=== PATIENT | female | born 1970 | race Caucasian/White ===

== ENCOUNTER 2025-03-23 14:53 | Outpatient (AMB) | payer OTHER, SELFPAY ==
--- NOTE | 2025-03-23 15:01 | A.OFFVIS_ITS ---
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 Two of her sisters in their 70s also had dementia. Occasionally she forgets coworkers names but she has been working from home and does not see them all the time. The name comes back after moment of thinking. On 2 occasions she has felt momentarily disoriented as to where she was going but this has not happened again. Recently she has been worked up by Rheumatology for an autoimmune disorder and started on hydrochloroquine. She apparently had a positive GALA but all other immune test and inflammatory markers were negative. She does have some joint pains and fibromyalgia for which she takes gabapentin at bedtime. [facility] Medical History (Updated 03/23/25 @ 15:19 by Checo Mae MD) Hypothyroid Memory loss Headache Review of Systems ENT Reports dysphagia, Reports hearing loss, Reports hoarseness and Reports neck pain GI Reports dysphagia Musc Reports back pain, Reports arthralgias, Reports limited range of motion and Reports neck pain Neuro Reports memory loss Psych Reports memory loss Physical Exam Neuro Other: Mini Mental Status Exam Level of Consciousness:?Alert.? Orientation:?Knows correct year, month, date, day and season.?Knows correct city, county and state. Knows correct location and floor.? Registration:?Able to register 3 objects.? Attention:?Serial 7's performed?? accurately.? Recall:?Able to recall 3 out of 3 objects.? Language:?Normal spontaneous speech, fluency, repetition, naming, comprehension, reading, and writing.? ?? Total Score:?30/30.? Neurological Abnormal neurological findings:??None. ? Mental Status:?Alert and oriented X 3.?Normal attention, orientation, memory, and affect.? Cranial Nerves:?Pupils are equal, round and reactive to light. Fundoscopy shows normal disc bilaterally. External ocular muscles are intact. Visual pradhan are full, no ptosis. Face is symmetrical, no facial weakness or droop. Facial sensations are normal.? Tongue protrudes in midline. Palate elevates symmetrically. Shoulder?? shrugging is normal.? Motor Examination:?Normal muscle tone, bulk and strength.?No atrophy or fasciculations.?No drift of the extended upper extremities.?Deep tendon reflexes are 2+.?Plantars?? are flexor.? ?Motor Strength:? Proximal Muscles (out of 5):?5 Distal Muscles (out of 5):?5 Neck Flexors (out of 5):?5 Neck Extensors (out of 5):?5 Deltoid (out of 5):?5 Biceps (out of 5):?5 Triceps (out of 5):?5 Serratus Anterior (out of 5):?5 Wrist Extensors (out of 5):?5 APB (out of 5):?5 Finger Spread (out of 5):?5 Ileopsoas (out of 5):?5 Quadriceps (out of 5):?5 Hamstrings (out of 5):?5 Tibialis Anterior (out of 5):?5 Peronei (out of 5):?5 EDB (out of 5):?5 Gastrocnemius (out of 5):?5 Straight Leg Raising:?90 degrees.? Sensory Exam:?Normal light touch,?? temperature, pinprick, vibration and joint- position sensations.?Rhomberg?? sign is absent.? Coordination:?No ataxia,?no titubation,?ztxbdo-gr-kyak, oigp-iamy-ezhp test, and rapid alternating?? movements were normal.? Gait Exam:?Normal. ? Cerebellar Signs:?Bqbcyj-bm-ieqa and?? ckbc-jw-skyu is normal.?No dysdiadochokinesia.? Extrapyramidal System:?No tremor or?rigidity, normal facial expressions.?No bra dykinesia. No bradyphrenia. Normal arm swing and posture. No propulsion or retropulsion.? Speech:?Normal,?no dysphasia or dysarthria.? General Examination GENERAL APPEARANCE:??Morbid obesity, in no acute distress?.? ?? HEAD:??normocephalic,?atraumatic.? ?? EYES:??sclera non-icteric,?conjunctiva clear.? ?? EARS:??auditory canal clear,?tympanic membrane intact, clear.? ?? NOSE:??no lesions.? ?? ORAL CAVITY:??gums normal,?mucosa moist,?no lesions.? ?? THROAT:??clear.? ?? NECK/THYROID:??no cervical lymphadenopathy,?thyroid normal,?neck supple, full range of motion,?no carotid bruit.? ?? SKIN:??no rashes,?no significant?? birthmarks.? ?? HEART:??S1, S2 normal,?no murmurs? ?? LUNGS:??clear anteriorly and ?posteriorly? ?? CHEST:??no gross rib deformity,?clear to ?auscultation.? ?? BACK:??normal exam of spine.? ?? MUSCULOSKELETAL:??normal.? ?? EXTREMITIES:??no edema.? ?? PERIPHERAL PULSES:??normal.? ?? PSYCH:??alert, oriented,?cognitive function intact,?cooperative with exam?,?alert,?? oriented,?cognitive ?function intact,?cooperative with exam.? Assessment & Plan Assessment & Plan (1) MCI (mild cognitive impairment): Code(s): G31.84 - Mild cognitive impairment of uncertain or unknown etiology Category: Medical (2) Migraine: Comment: in remission Code(s): G43.909 - Migraine, unspecified, not intractable, without status migrainosus Category: Medical Plan Check labs for A Beta / p-Tau Orders: Orders ABeta 42/40 p-tau 217 Eval Today G31.84 - Mild cognitive impairment of uncertain or unknown etiology Coding Level of Care Code New Pt Level 5 (62158) Diagnoses MCI (mild cognitive impairment) G31.84 Migraine G43.909
--- OUTSIDE RECORDS SUMMARY | 2025-03-23 23:25 | XMS_ITS | Encounter Summary ---
Author Organization [facility] Address [address] [place] [address] Care Team Providers Care Tube Washer Name Role Phone Aaron Hermosillo MD Primary Care Provider [phone] Encounter Details Date Type Department Care Team ([facility] Contact Info) Description 02/11/2025 Results Follow-Up Internal Medicine - [address] [phone] Robert Ho NP [address] [place] [id number] Social History Tobacco Use Types Packs/Day Years Used Date Smoking Tobacco: Never Smokeless Tobacco: Never Alcohol Use Standard Drinks/Week Comments Yes 0 (1 standard drink = 0.6 oz pur e alcohol) Housing Instability Answer Date Recorde d Are you worried that in the next 2 months you may not have stable housing? No 05/24/2024 Food Access & Nutrition Answer Date Rec orded Do you have access to a vari ety of food including fruits and vegetables? Yes 05/24/2024 Access to Healthcare Answer Date Record ed Within the last 3 months, ho w many times did you visit the emergency department for your medical care? 0 05/24/2024 Health Literacy Answer Date Recorded How often do you need to hav e someone help you when you read instructions, pamphlets, or other written material from your doctor or pharmacy? Never 05/24/2024 Caregiver: How often do you need to have someone help you when you read instructions, pamphlets, or other written material from your doctor or pharmacy? Not on file 05/24/2024 Financial Risk Answer Date Recorded How hard is it for you to pa y for the very basics like food, housing, medical care, and air conditioning / heating? Somewhat hard 05/24/2024 Transportation Answer Date Recorded Has the lack of transportati on kept you from meetings, work, or from getting things needed for daily living? No Has the lack of transportati on kept you from medical appointments or from getting medications? No 05/24/2024 Social Isolation Answer Date Recorded How often do you feel lonely or isolated from ose around you? Often 05/24/2024 Food Risk Answer Date Recorded Within the past 12 months we worried whether our food would run out before we got money to buy more. Never true 05/24/2024 Within the past 12 months th e food we bought just didn't last and we didn't have money to get more. Never true 05/24/2024 Dependent Care Answer Date Recorded Do you need help finding or paying for care for your loved ones. For example, child development assistant or elderly care for an older adult? No 05/24/2024 Education Answer Date Recorded Do you think completing more education or training, like finishing a GED, going to college, or learning a trade, would be helpful for you? Unable to respond 05/24/2024 Employment and Income Answer Date Recor ded During the last four weeks, have you been actively looking for work? No 05/24/2024 Living Situation Answer Date Recorded What is your living situation? Unrecognized valu e 05/24/2024 Comments No Sex and Gender Information Value Date Recorded Sex Assigned at Female 06/23/2024 6:07 AM EDT Legal Sex Female 5:33 AM EST Gender Identity Female 06/23/2024 6:07 AM EDT Sexual Orientation Straight 10/11/2024 12 :16 PM EDT documented as of this encounter Plan of Treatment Upcoming Encounters Date Type Department Care Team (Late st Contact Info) Description 03/30/2025 10:00 AM EST Ancillary Procedure [facility] [address] [address] 03/31/2025 7:30 AM EST Ancillary Procedure [facility] [address] [address] 05/25/2025 4:00 PM EST Office Visit Internal Medicine - [address] [phone] Diandra Watkins, JEAN MARIE [address] [place] [phone] 06/07/2025 7:40 AM EST Office Visit [facility] - [address] [facility] [address] [place] [address] Veronica Morrison NP [address] [place] [address] Dr Hansen [address] [place] [phone] documented as of this encounter Visit Diagnoses Not on filedocumented in this encounter Additional Health Concerns Assessment Noted Time PHQ-9 Depression Total Score: 4 06/24/19 25 6:24 AM EDT documented as of this encounter Care Teams Tube Washer Relationship Specialty Start Date End Date Aaron Hermosillo MD [address] [place] [id number] PCP - General Internal Medicine 12/14/24 documented as of this encounter
--- OUTSIDE RECORDS SUMMARY | 2025-03-23 23:26 | XMS_ITS ---
Author Name [facility] Organization Unknown History of Medication Use Medication Directions Dispensed Refills Start Date End Date Stat us diazePAM (Valium) 2 mg tablet Take one tablet 30 minutes prior to MRI. May repeat once if needed for anxiety. 07/02/2024 active alendronate (FOSAMAX) 70 mg tablet Take 1 tablet (70 mg total) by mouth every 7 (seven) days. Take 1 tablet by mouth every 7 days. 05/24/2024 active cyclobenzaprine (FLEXERIL) 10 mg tablet Take 1 tablet (10 mg total) by mouth at bedtime as needed for muscle spasms. 05/24/2024 active gabapentin (NEURONTIN) 300 mg capsule Take 1 capsule (300 mg total) by mouth at bedtime. 05/24/2024 active levothyroxine (SYNTHROID, LEVOTHROID) 50 mcg tablet Take 1 tablet (50 mcg total) by mouth 1 (one) time each day. 05/24/2024 active fluticasone propionate (FLONASE) 50 mcg/actuation nasal spray Administer 2 sprays into affected nostril(s) 1 (one) time each day. 11/12/2022 active albuterol HFA (PROAIR HFA ; PROVENTIL HFA ; VENTOLIN HFA) 90 mcg/actuation inhaler Inhale 2 puffs by mouth every 4 (four) hours if needed for wheezing or shortness of breath (or cough). 12/07/2020 active acetaminophen (TYLENOL) 500 mg tablet Take 1 tablet (500 mg total) by mouth every 8 (eight) hours if needed (for pain). 07/03/2020 active diclofenac (VOLTAREN) 1 % topical gel Apply 1 Dose topically 2 (two) times a day. 04/28/2020 active calcium carbonate-vitamin D3 600 mg-20 mcg (800 unit) tablet,chewable Take 1 Tablet by mouth daily. active SUMAtriptan (IMITREX) 100 mg tablet Take 1 tablet (100 mg total) by mouth 1 (one) time each day if needed for migraine (may repeat dose once after 2 hours, if needed.). Do not exceed 2 doses in 24 hours. active Allergies Allergen Reaction Severity Comment Documented Date Source Statu s IODINATED CONTRAST MEDIA RASH 11/02/2021 [facility] active OXYCODONE HCL NAUSEA AND VOMITING 06/24/2007 [facility] active Problems Problem Status Onset Date Problem Type Date of Resoluti on Source Age-related osteoporosis without current pathological fracture active 2020-04-12 ProblemAct [facility] Postlaminectomy syndrome active 2020-05-25 ProblemAct [facility] Left arm weakness active 2016-08-08 ProblemAct [facility] Degeneration of lumbar or lumbosacral intervertebral disc active 2006-11-26 ProblemAct [facility] Migraine active 2013-07-09 ProblemAct [facility] Neck pain active 2013-07-09 ProblemAct [facility] Levoscoliosis active 2022-03-12 ProblemAct [facility] Allergic rhinitis active 2005-06-18 ProblemAct [facility] Elevated antinuclear antibody (GALA) level active 2020-04-19 ProblemAct [facility] Headache active 2010-05-24 ProblemAct [facility] Hyperlipidemia active 2005-07-04 ProblemAct [facility] Anetoderma active 2020-03-03 ProblemAct [facility] Hypothyroidism active 2005-04-08 ProblemAct [facility] Sacroiliitis, not elsewhere classified (CMS/HCC V24) active 2020-04-20 ProblemAct [facility] Immunizations Vaccine Date Source Lot Number Status Moderna SARS-CoV-2 COVID-19, mRNA, LNP-S, preservative free 05/25/2021 [facility] [id number] completed Moderna SARS-CoV-2 COVID-19, mRNA, LNP-S, preservative free 04/23/2021 [facility] [id number] completed Td Tetanus diptheria (Tdvax) 7yo and older 07/27/2018 [facility] [id number] completed Influenza trivalent, with pr eservative (Fluzone; Afluria) 6mo and older 01/13/2012 [facility] [id number] completed Tdap Tetanus diptheria acell ular pertussis (Boostrix; Adacel) 7yo and older 01/28/2008 [facility] [id number] completed Influenza trivalent, with pr eservative (Fluzone; Afluria) 6mo and older 01/27/2008 [facility] completed PPD Test 07/18/2000 [facility] completed PPD Test 07/16/2000 [facility] completed Care Team Organization Name Specialty Phone Email Start Date End Da te [facility], PROVIDER Primary Care 12/19/202211/12 [facility] Zoila De La Cruz Primary Care 08/19/202211/12
--- OUTSIDE RECORDS SUMMARY | 2025-03-23 23:26 | XMS_ITS | Clinical Summary ---
Author Organization [facility] Address [address] [place] [address] Care Team Providers Care Shank Taper Name Role Phone Aaron Hermosillo Primary Care Provider [phone] Allergies Active Allergy Reactions Criticality Noted Date Comments Contrast Dye Urticarial Rash Medium 08/26/2022 Oxycodone Urticarial Rash Medium 08/26/2022 Social History Tobacco Use Types Packs/Day Years Used Date Smoking Tobacco: Never Assessed Intimate Partner Violence Answer Date R ecorded Fear of Current or Ex-Partner Not on file Emotionally Abused Not on file 12/05/2022 Physically Abused Not on file 12/05/2022 Sexually Abused Not on file 12/05/2022 Feel Safe at Home Not on file 12/05/2022 Comments Unknown Sex and Gender Information Value Date Recorded Sex Assigned at Not on file Legal Sex Female 10:15 AM EDT Gender Identity Not on file Sexual Orientation Not on file Plan of Treatment Health Maintenance Due Date Last Done Comments Hepatitis C Screening 1969 Pap Smear 1985 DTaP/Tdap/Td (1 - Tdap) 11/16/1987 Hep B (1 of 3 - 19+ 3-dose series) 1988 Mammogram/Breast Imaging 2009 Colon Cancer Screening 2014 Pneumococcal 50+ years (1 of 1 - PCV) 11/16/2019 Zoster (Shingrix) (1 of 2) 11/16/2019 COVID-19 Vaccine (2024-2 6 season) 2024 Influenza (#1) 2024 RSV (1 - 1-dose 75+ series) 2044 HPV Vaccine (No Doses Required) Completed Hep A Aged Out No longer eligi ble based on patient's age to complete this topic Hib Aged Out No longer eligi ble based on patient's age to complete this topic Meningococcal ACWY Aged Out No longer eligible based on patient's age to complete this topic Care Teams Shank Taper Relationship Specialty Start Date End Date Aaron Hermosillo [address] [id number] PCP - General Internal Medicine 07/22/22
--- OUTSIDE RECORDS SUMMARY | 2025-03-23 23:26 | XMS_ITS | Data Portability ---
Author Organization [place] - [facility], Allergy Address [address] [address] Care Team Providers Care Executive Producer Name Role Phone CLAYTON NAVA Referring Provider RABIA MENDIOLA Primary Care Provider Assessment Encounter Date Assessment Date Assessment LastModified by Organization Details LastModified Time 09/29/2024 09/29/2024 Feels difficulty swallowing all the time. Saliva, food, liquid intermittently are difficulty to go down. Has chronic intermittent hoarseness. Recently had an MRI scan for memory issues that showed no sinus or ear disease. Followed by neurology. Examination shows mild breathiness to her voice. There is no evidence of any oropharyngeal lesions. Transnasal fiberoptic examination shows mild anterior glottic bowing but good mobility and no pooling of secretions. Suggest modified barium swallow with speech pathology to assess for any swallowing issues. She does have follow-up with neurology for her memory issues and we will ask them to assess for any neuromuscular conditions [email or web address] Not available 09/29/2024 15:50:18 Plan of Treatment Reminders Order Date Submit Date Provider Last Modified By Organization Details Last Modified Time Details Appointments None recorded. Lab None recorded. Referral None recorded. Procedures None recorded. Surgeries None recorded. Imaging [place], modified barium swallow study 2024 025 [id number] [facility] Diagnosit Imaging Dept, [address] [place] [address], [address], 12:15:04 Medication Orders None recorded. Patient TargetsNo targets recorded. Patient InstructionsNo instructions recorded. Reason for Referral None Reported. Results Created Date Observation Date Name Description Value Unit Range Abnormal Flag Note LastModifiedBy Organization Detail LastModifiedTime 10/01/19 MRI, brain , w/o contr ast No observ ation record ed. [email or web address] Not Available 12:15:59 10/01/19 25 MRI, brain , w/o contr ast No observ ation record ed. [email or web address] Not Available 12:16:05 10/01/19 25 MRI, brain , w/o contr ast No observ ation record ed. [email or web address] Not Available 12:15:50 01/14/20 25 01/13/2025 proce dures No observ ation record ed. [facility] Dept [address] [facility], [place], [address], 01/13/2025 17:57:28 01/14/2001/13/2025 xr bunny garg with video and speec h See Note [facility] , a member of [facility] Erik antoine Name: ABY FOWLER Date of : 1970 Reason for Exam: dyspha janae Exam Date: 2024 [id number] EST Report Status : Final Orderi ng Provid er: ARON DOWLING BSTEIN PCP: RABIA SPENCE I [facility] HISTOR Y: dyspha janae. STUDY: Modifi ed barium swallo w study COMPAR CAREY: No prior modifi ed barium swallo w. HISTOR Y: Erik antoine is a 54-yea r-old female with histor y of dyspha janae. TECHNI QUE: Multip le sequen tial fluoro scopic images of the latera l neck were obtain ed for a swallo wing functi on study. Barium enhanc ed consis tencie s of puddin g, honey, nectar , thin liquid , semi-s olid, and a 13 mm barium tablet were utiliz ed for evalua tion. Examin ation was perfor med with the speech therap ist americo antoine. FINDIN GS: There was no eviden ce for penetr ation or aspira tion of the variou s consis tencie s. 13mm barium tablet was swallo wed withou t diffic ulty with prompt passag e of pill past the hypoph arynx. DAP: 0.07 Gycm^2 IMPRES DEYSI: Normal swallo wing functi on. Please refer to the nataliia walters speech pathol ogist report for furthe r detail s as clinic fred walters. CT Telera diolog y ------ -- FINAL REPORT ------ -- Dictat ed By: Laurie Spann Dictat ed Date: 2024 12:03 ET Assign ed Physic coco: James Powell Review ed and Electr onical ly Signed By: James Powell Signed Date: 2024 12:07 ET Workst ation ID: [id number] Transc ribed By: Self Edit Transc ribed Date: 2024 12:04 ET Reside nt/PA/ BUS OPERATOR: Laurie Spann [facility] [address] [place], [address], 01/13/2025 17:57:28 Result Notes None recorded. 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; Note: Date Diagnosed : 05/14/2014 10:17 AM (388.72) Not Available [facility] 4 03:16:40 Chronic laryngiti s 29856884 Active 2015 Chronic laryngiti s; Note: Date Diagnosed : 07/25/2015 4:04 PM (J37.0) Not Available [facility] 4 03:16:41 Pain of right temporoma ndibular joint 41591002191 370937 Active 2016 Arthralgi a of right temporoma ndibular joint; Note: Date Diagnosed : 05/06/2016 1:43 PM (M26.621) Not Available [facility] 4 03:16:41 Otalgia of right ear 5248926421 Active 2016 Otalgia, right ear; Note: Date Diagnosed : 05/06/2016 1:24 PM (H92.01) Not Available [facility] 4 03:16:40 Allergic rhinitis 76254280 Active 2016 Allergic rhinitis: Due to other allergen; Note: Date Diagnosed : 06/10/2016 1:31 PM (477.8) Not Available [facility] 4 03:16:40 Chronic hoarsenes s 63154341336 05 Active 2024 ARON FERNANDEZ MD [address] [facility], [facility] [place], [address] , [facility] - [facility] 5 15:46:37 Pharyngea l dysphagia 04214211891 105 Active 2024 ARON FERNANDEZ MD [address], [facility] [place], [address] , [facility] 15:46:48 Problem Notes None recorded. Procedures Surgical History Date Name Laterality Status Provider Name and Address Organization Details Recorded Time 09/30/19 25 Fiberoptic Laryngoscopy (Comprehensive) completed ARON COOK MD [address],[place] [address], [place], [address], [facility] - [facility] 09/29/2024 15:49:16 laminectomy completed Radha Santana [facility] 09/29/2024 15:26:26 Imaging Results None recorded. Procedure Notes None recorded. Medical Equipment None Reported. Allergies Allergen ID Allergen Name Allergen Category Reaction Reaction Severity Criticality Documentation Date Start Date Code Code System Note Provider Name and Address Organization Details Recorded Time 294317 Iodinated contrast media (substanc e) medicatio n Not available Not available Not available 09/29/2024 64033 2004 SNOMED Radha christensen [place] [facility] 5 15:24:21 446628 oxycodone medicatio n Not available Not available Not available 09/29/2024 7804 RxNorm Radha christensen [place] [facility] 15:24:28 Medications Name Sig Start Date Stop Date Status Note LastModified by Organization Details LastModified Time cyclobenz aprine 10 mg tablet PLEASE SEE ATTACHED FOR DETAILED DIRECTIO NS 2024 active Not Available Not Available Not Avai lable sumatript an 100 mg tablet 2016 active Medicati on ID: [id number] D uration Value: 22 Brand Name: jarad zayas succinat e Send Method: E-Prescr ibed Sub s Allowed: subs OK Medic ationGen ericName : sumatrip zayas succinat e Not Available Not Available Not Available alendrona te 70 mg tablet TAKE 1 TABLET BY MOUTH EVERY 7 DAYS active Not Available Not Available No t Available Zyrtec 10 mg tablet 06/10 completed Medicati on ID: [id number] P rescribe d By Name: YOUNG Ryder nd Name: Zyrtec S end Method: E-Prescr ibed Sub s Allowed: subs OK Speci al Instruct ion: Take 1 tablet by mouth every day Medi cationGe nericNam e: Zyrtec Not Available Not Available Not Available aspirin 81 mg tablet,de layed release 09/29 completed Medicati on ID: [id number] B rand Name: aspirin Send Method: E-Prescr ibed Sub s Allowed: subs OK Medic ationGen ericName : aspirin Not Available Not Available Not Available oxycodone -acetamin ophen 5 mg-325 mg tablet 06/10 completed Medicati on ID: [id number] Du ration Value: 2 Reason: () Brand Name: oxycodon e-acetam inophen Send Method: E-Prescr ibed Sub s Allowed: subs OK Medic ationGen ericName : oxycodon e-acetam inophen Not Available Not Available Not Available amoxicill in 875 mg tablet 06/10 completed Medicati on ID: [id number] Du ration Value: 10 Reason: () Brand Name: amoxicil sean Send Method: E-Prescr ibed Sub s Allowed: subs OK Medic ationGen ericName : amoxicil sean Not Available Not Available Not Available diazepam 2 mg tablet TAKE ONE TABLET 30 MINUTES PRIOR TO MRI. MAY REPEAT ONCE IF NEEDED FOR ANXIETY. 09/29 completed Not Available Not Available Not Available levothyro xine 50 mcg tablet TAKE 1 TABLET BY MOUTH EVERY DAY active Not Available Not Available No t Available gabapenti n 300 mg capsule TAKE 1 CAPSULE BY MOUTH EVERYDAY AT BEDTIME active Not Available Not Available No t Available albuterol sulfate HFA 90 mcg/actua tion aerosol inhaler INHALE 2 PUFFS INTO THE LUNGS 4 TIMES DAILY NEEDED FOR COUGH, WHEEZING OR SHORTNES S OF BREATH. active Not Available Not Available No t Available fluticaso ne propionat e 50 mcg/actua tion nasal spray,suhail [place] 1 spray every day by intranas al route. active Not Available Not Available No t Available Levora-28 0.15 mg-0.03 mg tablet 06/10 completed Medicati on ID: [id number] Du ration Value: 84 Reason: () Brand Name: Levora-2 8 Send Method: E-Prescr ibed Sub s Allowed: subs OK Medic ationGen ericName : Levora-2 8 Not Available Not Available Not Available topiramat e 50 mg tablet 06/10 completed Medicati on ID: [id number] Du ration Value: 40 Reason: () Brand Name: topirama te Send Method: E-Prescr ibed Sub s Allowed: subs OK Medic ationGen ericName : topirama te Not Available Not Available Not Available EpiPen 2-Oscar 0.3 mg/0.3 mL injection , auto-inje ctor Inject 1 pen injector intramus cularly single dose as needed 09/29 completed Medicati on ID: [id number] D uration Value: 1 Prescri bed By Name: Brenda Rojo nd Name: EpiPen 2-Oscar Se nd Method: E-Prescr ibed Sub s Allowed: subs OK Medic ationGen ericName : EpiPen 2-Oscar Not Available Not Available Not Available Vitals Date Recorded Body height Body weight Provider Name and Address Organization Details Last Updated DateTime 09/29/2024 154.94 cm 48856.75 g Radha Santana [place] - [facility] 09/29/2024 15:23:58 Social History None recorded. Functional Status None recorded. Mental Status None recorded. Family History Nothing Reported. Medical History Condition Response Migraines Y Arthritis Y Thyroid Problems Y Gynecological HistoryNo gynecological history recorded. Obstetrics History GPAL:G 0 P 0 0 0 0 Past Encounters Encounter ID Performer Location Encounter Start Date Encounter Closed Date Diagnosis/Indication Diagnosis SNOMED-CT Code Diagnosis ICD10 Code Diagnosis IMO Codes Diagnosis Note [id number] ARON FERNANDEZ MD [facility] [address] [place] [address] 09/29/2024 14:58:28 09/29/2024 16:14:06 Chronic hoarseness 2941300969 105 R49.0 2465831 Pharyngeal dysphagia 377 5057752 9105 R13.13 Health Concerns Section Related Observation LastModified by Organization Detai ls LastModified Time None Recorded Concern Status LastModified by Organization Details LastModified Time None Recorded Advance Directives Directive None Recorded Payers Insurance Date Sequence Insurance Name Policy Number Policy Luis Covered Member ID Luis Member ID Guarantor Name 2024 1 [facility] [id number] [facility] [id number] [facility] 02/17/2025 1 [facility] [id number] Nickie Salharry [facility] [id number] [facility] Notes Date Note Type Note Provider Name and Address Organization Details Recorded Time 09/29/2024 text/html ROS as noted in the HPI Feels difficulty swallowing all the time. Saliva, food, liquid intermittently are difficulty to go down. Has chronic intermittent hoarseness. Recently had an MRI scan for memory issues that showed no sinus or ear disease. Followed by neurology ARON COOK MD [address] [place] [address], [address], [place] - [facility] 09/29/2024 17:03:53 OBGyn Episode No OBEpisode recorded.
--- OUTSIDE RECORDS SUMMARY | 2025-03-23 23:26 | XMS_ITS | Clinical Summary ---
Author Organization [address] [facility] Building Address [address] [place] [phone] Phone Care Team Providers Care Winery Worker Name Role Phone Aaron Hermosillo MD Primary Care Provider [phone] Allergies Active Allergy Reactions Criticality Noted Date Comments Iodinated Contrast Media Rash 11/02/2021 Oxycodone Hcl Nausea And Vomiting 06/24/2007 Medications albuterol HFA (PROAIR HFA ; PROVENTIL HFA ; VENTOLIN HFA) 90 mcg/actuation inhaler Inhale 2 puffs by mouth every 4 (four) hours if needed for wheezing or shortness of breath (or cough). 1 Active acetaminophen (TYLENOL) 500 mg tablet Take 1 tablet (500 mg total) by mouth every 8 (eight) hours if needed (for pain). 1 Active diclofenac (VOLTAREN) 1 % topical gel Apply 1 Dose topically 2 (two) times a day. 1 Active fluticasone propionate (FLONASE) 50 mcg/actuation nasal spray Administer 2 sprays into affected nostril(s) 1 (one) time each day. 3 Active SUMAtriptan (IMITREX) 100 mg tablet Take 1 tablet (100 mg total) by mouth 1 (one) time each day if needed for migraine (may repeat dose once after 2 hours, if needed.). Do not exceed 2 doses in 24 hours. Active calcium carbonate-vitamin D3 600 mg-20 mcg (800 unit) tablet,chewable Take 1 Tablet by mouth daily. Active diazePAM (Valium) 2 mg tablet Take one tablet 30 minutes prior to MRI. May repeat once if needed for anxiety. 2 tablet 5 Active hydroxychloroquin e (PLAQUENIL) 200 mg tablet Take 1 tablet (200 mg total) by mouth 1 (one) time each day. 5 Active alendronate (FOSAMAX) 70 mg tabletIndications :Age-related osteoporosis without current pathological fracture Take 1 tablet (70 mg total) by mouth every 7 (seven) days. Take 1 tablet by mouth every 7 days. 12 each 1 5 05/21/19 26 Active gabapentin (NEURONTIN) 300 mg capsuleIndication s:Chronic bilateral low back pain with bilateral sciatica Take 1 capsule (300 mg total) by mouth at bedtime. 30 each 2 5 Active cyclobenzaprine (FLEXERIL) 10 mg tabletIndications :Chronic bilateral low back pain with bilateral sciatica Take 1 tablet (10 mg total) by mouth at bedtime as needed for muscle spasms. 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 Her brain MRI was also normal. No further evaluation indicated. She may decide to continue taking 81 mg ASA daily, as she has no contraindication to this. Migraine 07/09/2013 Neck pain 07/09/2013 Headache 05/24/2010 Degeneration of lumbar or lumbosacral interverte bral disc 11/26/2006 Overview (01/15/2024): Hx of lumbar surgery 03/2006; gets occasional epidural corticosteroid injections Hyperlipidemia 07/04/2005 Assessment & Plan (01/28/2025 5:18 PM EDT): Allergic rhinitis 06/18/2005 Hypothyroidism 04/08/2005 Encounters Date Type Department Care Team Description 03/15/2025 [facility]phone [facility] [address] [facility] [address] [place] [address] Bipin Morris MD 02/21/2025 Results Follow-Up [facility] [address] [facility] [address] [place] [address] Veronica Morrison NP 02/11/2025 8:36 AM EDT - 02/11/2025 11:59 PM EDT Hospital Encounter [facility] - [facility] [address] [place], [place] [phone] Abnormal x-ray of abdomen Discharge Disposition: Home or Self Care 02/11/2025 Results [facility] [address] [place], [place] [phone] Robert Ho NP 02/10/2025 Telephone [facility] [address] [facility] [address] [place] [address] Bipin Morris MD 02/09/2025 2:15 PM EDT Lab Draw Station - [place] [address] [address] [place], [place] Abnormal x-ray of abdomen; Hypothyroidism, unspecified type 02/09/2025 1:15 PM EDT Office Visit [facility] - [facility] [address] [place], [place] [phone] Robert Ho NP Abnormal x-ray of abdomen (Primary Dx); Hypothyroidism, unspecified type 02/09/2025 Telephone [facility] - [facility] [address] [place] [phone] Robert Ho NP 01/27/2025 3:36 PM EDT - 01/27/2025 11:59 PM EDT Hospital Encounter [facility] Xray [address] [place] [phone] NAPOLES (dyspnea on exertion) Discharge Disposition: Home or Self Care 01/27/2025 3:00 PM EDT Office Visit [facility] [address] [facility] [address] [place] [phone] Bipin Morris MD NAPOLES (dyspnea on exertion) (Primary Dx); Hyperlipidemia, unspecified hyperlipidemia type; Family history of heart disease 01/13/2025 9:39 AM EDT - 01/13/2025 11:59 PM EDT Hospital Encounter [facility] Xray [address] [place] [phone] Sonia Hassan, SENIOR DEVOPS ENGINEER Dysphagia, pharyngeal phase Discharge Disposition: Home or Self Care 12/28/2024 3:30 PM EDT Office Visit [facility] [address] [facility] [address] [place] [phone] Lee Ann Schaefer, PA Memory loss (Primary Dx) from Last 3 Months Immunizations Immunization Administration Dates Next Due Influenza trivalent, with pr eservative (Fluzone; Afluria) 6mo and older 01/13/2012,01/27/2008 Moderna SARS-CoV-2 COVID-19, mRNA, LNP-S, preservative free 05/25/2021,04/23/2021 PPD Test 07/18/2000,07/16/2000 Td Tetanus diptheria (Tdvax) 7yo and older 07/27 Tdap Tetanus diptheria acell ular pertussis (Boostrix; Adacel) 7yo and older 01/28/2008 Surgical History Surgery Date Site/Laterality Comments BACK SURGERY 03/19 PROCEDURE: HISTORICAL BACK SURGERY; COMMENT: Herniated disc L5 Medical History Medical History Date Comments Allergic rhinitis, cause unspecified 06/18/2005 DX:Allergic rhinitis, cause unspecified Unspecified hypothyroidism 04/08/2005 DX:Un specified hypothyroidism Other and unspecified hyperlipidemia 07/04/2005 DX:Other and unspecified hyperlipidemia Degeneration of lumbar or hoa mbosacral intervertebral disc 11/26/2006 DX:Degeneration of lumbar or lumbosacral intervertebral disc; COMMENT: Hx of lumbar surgery 03/2006 Headache(784.0) DX:Headache(784. 0); COMMENT: migraine Other specified personal his tory presenting hazards to health(V15.89) 08/18 DX:Other specifie d personal history presenting hazards to health(V15.89); COMMENT: ASCUS neg HPV Arthritis DX:Arthritis Family history of heart disease Family History Medical History Relation Name Comments Coronary artery disease Brother 1 Diabetes Brother 1 secondary to re nal failure Lung cancer Maternal Grandfather smoker Arthritis Mother supposedly RA Hypertension Mother Thyroid disease Mother Breast cancer Other niece Colon cancer Neg Hx Ovarian cancer Neg Hx Relation Name Status Comments Brother 1 Alive Brother 2 Alive Daughter Alive Father Maternal Grandfather Maternal Grandmother Mother Alive Other niece (Age 23) Paternal Grandfather Paternal Grandmother Son 1 Alive Son 2 Alive Social History Tobacco Use Types Packs/Day Years [...] Record ed Within the last 3 months, soha sandoval many times did you visit the emergency [...] do you feel lonely or isolated from th ose around you? Often 05/24/2024 Food Risk [...] for your loved ones. For example, child abuse worker or elderly care for an older adult? [...] Orientation Straight 10/11/2024 12 :16 PM EDT Obstetrics History * This document contains information received from the source organization and may not represent a complete record from that organization. Para Term AB IAB SAB Ectopic Multiple Livin g Live Births 4 3 3 3 Date Outcome GA Total Labor Labor/2nd/3rd Weight Sex Type Anes PTL Cassie A1 A5 Name Clin Term Term Term Last Filed Vital Signs Vital Sign Reading Time Taken Comments Blood Pressure 120/74 02/09/2025 1:25 PM EDT Pulse 86 02/09/2025 1:25 PM EDT Temperature - - Respiratory Rate - - Oxygen Saturation 98% 01/27/2025 2:53 PM EDT Inhaled Oxygen Concentration - - Weight 61.3 kg (135 lb 3.2 oz) 02/09/2025 1:25 P M EDT Height 154.9 cm (5' 1 ) 02/09/2025 1:25 PM EDT Body Mass Index 25.55 02/09/2025 1:25 PM EDT Plan of Treatment Upcoming Encounters Date Type Department Care Team (Late st Contact Info) Description 03/30/2025 10:00 AM EST Ancillary Procedure [facility] [address] [phone] 03/31/2025 7:30 AM EST Ancillary Procedure [facility] [address] [phone] 05/25/2025 4:00 PM EST Office Visit Internal Medicine - [address] [phone] Diandra Watkins NP [address] [place] [address] 06/07/2025 7:40 AM EST Office Visit [facility] [address] [facility] [address] [place] [phone] Veronica Morrison, JEAN MARIE [address] [place] [address] [address] [place] [address] Health Maintenance Due Date Last Done Comments Drug Screen 1970 Non-Opioid Controlled Substance Agreement 1970 Hepatitis B Vaccines (1 of 3 - 19+ 3-dose series) 1988 Zoster Vaccines (1 of 2) 11/16/2019 COVID-19 Vaccine (3 - 2024- season) 2024 05/25/2021, 04/23/2021 Social Influencers of Health Screening 05/24/2025 05/24/2024 Breast Cancer Screening 02/13/2026 02/14/20 24, 01/11/2023, 11/25/2020, Additional history exists Cervical Cancer Screening: HPV 06/26/2026 06/26/2021 Cholesterol Screening (Lipid Panel) 05/24/2029 05/24/2024, 05/21/2023, 05/21/2023 Osteoporosis Screening (Bone Density Screening) 06/02/2034 06/02/2024, 04/16/2022, 04/10/2020 RSV Immunization Adult Patients (1 - 1-dose 75+ series) 2044 Pneumococcal Vaccine: 50+ Years Discontinued 03/15/2006 HIV Screening Completed 12/19/2011 Hepatitis C Screening Completed 12/19/2011 Influenza Vaccine Discontinued 01/13/2012, 01/27/2008 DTaP,Tdap,and Td Vaccines Discontinued 07/27/2018, Depression Screening Completed 06/23/2024 HIB Vaccines Aged Out No longer eligi ble based on patient's age to complete this topic HPV Vaccines Aged Out No longer eligi ble based on patient's age to complete this topic Hepatitis A Vaccines Aged Out No long er eligible based on patient's age to complete this topic IPV Vaccines Aged Out No longer eligi ble based on patient's age to complete this topic MMR Vaccines Aged Out No longer eligi ble based on patient's age to complete this topic Meningococcal ACWY Vaccine Aged Out N o longer eligible based on patient's age to complete this topic Meningococcal B Vaccine Aged Out No l onger eligible based on patient's age to complete this topic RSV Immunization Patients Under 20 months Aged Out No longer eligible based on patient's age to complete this topic Varicella Vaccines Aged Out No longer eligible based on patient's age to complete this topic Procedures Procedure Name Priority Date/Time Associated Diagnosis Comments US ABDOMEN COMPLETE Routine 02/11/2025 9 :24 AM EDT Abnormal x-ray of abdomen THYROID STIMULATING HORMONE Routine 02/09/2025 2:13 PM EDT Hypothyroidism, unspecified type CBC WITH AUTO DIFFERENTIAL Routine 02/09/2025 2:13 PM EDT Abnormal x-ray of abdomen COMPREHENSIVE METABOLIC PANEL Routine 02/09/2025 2:13 PM EDT Abnormal x-ray of abdomen CBC AND DIFFERENTIAL Routine 02/09/2025 2:13 PM EDT Abnormal x-ray of abdomen XR CHEST 2 VIEWS Routine 01/27/2025 3:51 PM EDT NAPOLES (dyspnea on exertion) ECG 12-LEAD Routine 01/27/2025 2:59 PM EDT Family history of heart disease XR BARIUM SWALLOW WITH VIDEO AND SPEECH Routine 01/13/2025 10:11 AM EDT Dysphagia, pharyngeal phase SENIOR DEVOPS ENGINEER VIDEOFLUOROSCOPIC SWALLOW STUDY WITH BARIUM Routine 01/13/2025 9:45 AM EDT Dysphagia, pharyngeal phase BD BONE DENSITY DXA AXIAL SKELETON Routine 06/02/2024 2:46 PM EST Age-related osteoporosis without current pathological fracture LIPID PANEL WITH REFLEX TO DIRECT LDL Routine 05/24/2024 4:53 PM EST Encounter for lipid screening for cardiovascular disease MG MAMMO DIGITAL SCREENING W BOGDAN BILAT Routine 02/14/2024 11:23 AM EDT Encounter for screening mammogram for breast cancer HPV Routine 06/26/2021 HEPATITIS C SCREENING Routine 12/19/2011 HIV SCREENING Routine 12/19/2011 from Last 3 Months or Most Recently Relevant to Health Maintenance Results * US Abdomen Complete (02/11/2025 9:24 AM EDT) Anatomical Region Laterality Modality Body Ultrasound 02/11/2025 10:3 3 AM EDT Impressions 02/11/2025 10:35 AM EDT Normal abdominal ultrasound. -------- FINAL REPORT -------- Dictated By: Sara Raymundo Dictated Date: 02/11/2025 10:33 ET Assigned Physician: Sara Raymundo Reviewed and Electronically Signed By: Sara Raymundo Signed Date: 02/11/2025 10:35 ET Workstation ID: [id number] Transcribed By: Self Edit Transcribed Date: 02/11/2025 10:33 ET Narrative 02/11/2025 10:35 AM EDT ABDOMINAL ULTRASOUND History: Abnormal x-ray of abdomen. Recent chest x-ray revealed a calcification in the abdominal left upper quadrant, possibly within the liver or left kidney. Comparison: None currently available. FINDINGS: There is no evidence of cholelithiasis. The common bile duct is not dilated, measuring 3 mm. The gallbladder wall is not thickened. No pericholecystic fluid is seen. No ascites are seen. The visualized pancreas is normal in size and demonstrates normal echotexture. The liver measures 12.3 cm in length and demonstrates normal echotexture. No focal lesions are seen in the liver and there is no evidence of intrahepatic ductal dilation. Normal hepatopedal flow is seen in the main portal vein. No evidence of hydronephrosis, mass, or calculus was seen in either kidney. The right kidney measures 9.6 cm in greatest length. The left kidney measures 10.3 cm in length. The spleen measures 9.0 cm in length. The visualized abdominal aorta and IVC are unremarkable. Procedure Note Sara Raymundo MD - 02/11/2025 ABDOMINAL ULTRASOUND History: Abnormal x-ray of abdomen. Recent chest x-ray revealed acalcification in the abdominal left upper quadrant, possibly within theliver or left kidney. Comparison: None currently available. FINDINGS: There is no evidence of cholelithiasis. The common bile duct isnot dilated, measuring 3 mm. The gallbladder wall is not thickened. Nopericholecystic fluid is seen. No ascites are seen. The visualized pancreas is normal in size and demonstrates normalechotexture. The liver measures 12.3 cm in length and demonstrates normal echotexture.No focal lesions are seen in the liver and there is no evidence ofintrahepatic ductal dilation. Normal hepatopedal flow is seen in the mainportal vein. No evidence of hydronephrosis, mass, or calculus was seen in eitherkidney. The right kidney measures 9.6 cm in greatest length. The leftkidney measures 10.3 cm in length. The spleen measures 9.0 cm in length. The visualized abdominal aorta and IVC are unremarkable. IMPRESSION: Normal abdominal ultrasound. -------- FINAL REPORT -------- Dictated By: Sara Raymundo Dictated Date: 02/11/2025 10:33 ET Assigned Physician: Sara Raymundo Reviewed and Electronically Signed By: Sara Raymundo Signed Date: 02/11/2025 10:35 ET Workstation ID: [id number] Transcribed By: Self Edit Transcribed Date: 02/11/2025 10:33 ET us Robert Ho NP IMG US PROCEDURES Final Result * (ABNORMAL) CBC auto differential (02/09/2025 2:13 PM EDT) WBC 5.7 4.8 - 10.8 K/mcL LAB HEMETOLOGY METHOD 02/09/2025 6:17 PM EDT [facility] RBC 3.70(L) 3.80 - 4.80 M/mcL LAB HEMETOLOGY METHOD 02/09/2025 6:17 PM EDT [facility] Hemoglobin 11.6 11.5 - 16.0 g/dL LAB HEMETOLOGY METHOD 02/09/2025 6:17 PM EDT [facility] Hematocrit 35.2 35.0 - 47.0 % LAB HEMETOLOGY METHOD 02/09/2025 6:17 PM EDT [facility] MCV 94.4 79.0 - 98.0 FL LAB HEMETOLOGY METHOD 02/09/2025 6:17 PM EDT [facility] MCH 31.1 27.0 - 32.0 pcg LAB HEMETOLOGY METHOD 02/09/2025 6:17 PM EDT [facility] MCHC 33.0 32.0 - 37.0 g/dL LAB HEMETOLOGY METHOD 02/09/2025 6:17 PM EDT [facility] RDW 12.3 11.0 - 15.0 % LAB HEMETOLOGY METHOD 02/09/2025 6:17 PM [facility] Platelets 212 130 - 400 K/mcL LAB HEMETOLOGY METHOD 02/09/2025 6:17 PM [facility] MPV 11.7(H) 7.0 - 11.0 FL LAB HEMETOLOGY METHOD 02/09/2025 6:17 PM [facility] NRBC 0.0 <1.0 % LAB HEMETOLOGY METHOD 02/09/2025 6:17 PM [facility] NRBC Absolute 0.00 <0.10 K/mcL LAB HEMETOLOGY METHOD 02/09/2025 6:17 PM [facility] Neutrophils Relative 59.9 % LAB HEMETOLOGY METHOD 02/09/2025 6:17 PM [facility] Lymphocytes Relative 31.4 % LAB HEMETOLOGY METHOD 02/09/2025 6:17 PM [facility] Monocytes Relative 6.9 % LAB HEMETOLOGY METHOD 02/09/2025 6:17 PM [facility] Eosinophils Relative 1.1 % LAB HEMETOLOGY METHOD 02/09/2025 6:17 PM [facility] Basophils Relative 0.5 % LAB HEMETOLOGY METHOD 02/09/2025 6:17 PM [facility] Immature Granulocytes Relative 0.2 % LAB HEMETOLOGY METHOD 02/09/2025 6:17 PM [facility] Neutrophils Absolute 3.39 1.50 - 7.00 K/mcL LAB HEMETOLOGY METHOD 02/09/2025 6:17 PM [facility] Lymphocytes Absolute 1.78 1.00 - 5.00 K/mcL LAB HEMETOLOGY METHOD 02/09/2025 6:17 PM [facility] Monocytes Absolute 0.39 0.20 - 1.00 K/mcL LAB HEMETOLOGY METHOD 02/09/2025 6:17 PM EDT [facility] Eosinophils Absolute 0.06 0.00 - 0.50 K/mcL LAB HEMETOLOGY METHOD 02/09/2025 6:17 PM EDT [facility] Basophils Absolute 0.03 0.00 - 0.20 [facility] LAB HEMETOLOGY METHOD 02/09/2025 6:17 PM EDT [facility] Immature Granulocytes Absolute 0.01 0.00 - 0.03 K/[facility] LAB HEMETOLOGY METHOD 02/09/2025 6:17 PM EDT [facility] Blood Venous blood specimen / Unknown Venipuncture / Unknown 02/09/2025 2:13 PM EDT 02/09/2025 2:13 PM EDT us Robert Ho NP LAB BLOOD ORDERABLES Final Res ult Performing Organization Address City/[facility]/ZIP Co de Phone Number [facility] [address] [place] [address], [place] [phone] * Thyroid stimulating hormone (02/09/2025 2:13 PM EDT) Pathologist [facility] TSH 1.27 0.40 - 4.00 mcIU/mL LAB CHEMISTRY METHOD 02/10/2025 2:16 AM EDT [facility] Blood Venous blood specimen / Unknown Venipuncture / Unknown 02/09/2025 2:13 PM EDT 02/09/2025 2:13 PM EDT Robert Ho [employer] LAB BLOOD ORDERABLES Final Res ult [facility] [address] [place] [address], [place] [phone] * (ABNORMAL) Comprehensive metabolic panel (02/09/2025 2:13 PM EDT) Sodium 142 133 - 145 mmol/L LAB CHEMISTRY METHOD 02/09/2025 7:47 PM [facility] Potassium 4.1 3.5 - 5.5 mmol/L LAB CHEMISTRY METHOD 02/09/2025 7:47 PM [facility] Chloride 111(H) 96 - 110 mmol/L LAB CHEMISTRY METHOD 02/09/2025 7:47 PM [facility] CO2 29 21 - 32 mmol/L LAB CHEMISTRY METHOD 02/09/2025 7:47 PM [facility] Anion Gap 2(L) 3 - 11 LAB CHEMISTRY METHOD 02/09/2025 7:47 PM [facility] Glucose 93 70 - 100 mg/dL LAB CHEMISTRY METHOD 02/09/2025 7:47 PM [facility] BUN 17 5 - 25 mg/dL LAB CHEMISTRY METHOD 02/09/2025 7:47 PM [facility] Creatinine 0.61 0.50 - 1.10 mg/dL LAB CHEMISTRY METHOD 02/09/2025 7:47 PM [facility] eGFR 106 >=60 mL/min/1. 73m2 LAB CHEMISTRY METHOD 02/09/2025 7:47 PM [facility] Comment:Calculation based on the Chronic Kidney Disease Epidemiology Collaboration (CKD-EPI) equation refit without adjustment for race. BUN/Creatinine Ratio 27.9 LAB CHEMISTRY METHOD 02/09/2025 7:47 PM [facility] Calcium 9.4 8.5 - 10.5 mg/dL LAB CHEMISTRY METHOD 02/09/2025 7:47 PM [facility] AST (SGOT) 23 10 - 42 unit/L LAB CHEMISTRY METHOD 02/09/2025 7:47 PM [facility] ALT (SGPT) 41 10 - 60 unit/L LAB CHEMISTRY METHOD 02/09/2025 7:47 PM [facility] Alkaline Phosphatase 69 42 - 121 unit/L LAB CHEMISTRY METHOD 02/09/2025 7:47 PM EDT [facility] Total Protein 7.3 6.0 - 8.0 g/dL LAB CHEMISTRY METHOD 02/09/2025 7:47 PM EDT [facility] Albumin 4.0 3.2 - 5.0 g/dL LAB CHEMISTRY METHOD 02/09/2025 7:47 PM EDT [facility] Total Bilirubin 0.4 0.0 - 1.4 mg/dL LAB CHEMISTRY METHOD 02/09/2025 7:47 PM EDT [facility] Blood Venous blood specimen / Unknown Venipuncture / Unknown 02/09/2025 2:13 PM EDT 02/09/2025 2:13 PM EDT us Robert Ho SUPER[employer] LAB BLOOD ORDERABLES Final Res ult [facility] [address] [place] [address], [place] [phone] * XR Chest 2 Views (01/27/2025 3:51 PM EDT) Anatomical Region Laterality Modality Body Radiographic Xochitl ging 02/01/2025 7:37 AM EDT Impressions 02/01/2025 7:38 AM EDT No acute pulmonary disease. Code 18734 -------- FINAL REPORT -------- Dictated By: James Chiang Dictated Date: 02/01/2025 07:37 ET Assigned Physician: James Chiang Reviewed and Electronically Signed By: James Chiang Signed Date: 02/01/2025 07:38 ET Workstation ID: [id number] Transcribed By: Self Edit Transcribed Date: 02/01/2025 07:37 ET Narrative 02/01/2025 7:38 AM EDT HISTORY: The patient is a 54-year-old female with dyspnea on exertion. FINDINGS: PA and lateral radiographs of the chest, without previous for comparison, demonstrate levoscoliosis of the thoracic spine. The cardiac and mediastinal contours are within normal limits. The lungs and costophrenic angles are clear. A calcification is noted in the abdominal left upper quadrant, possibly within the liver or left kidney Procedure Note James Chiang MD - 02/01/2025 HISTORY: The patient is a 54-year-old female with dyspnea on exertion. FINDINGS: PA and lateral radiographs of the chest, without previous forcomparison, demonstrate levoscoliosis of the thoracic spine. The cardiacand mediastinal contours are within normal limits. The lungs andcostophrenic angles are clear. A calcification is noted in the abdominal left upper quadrant, possiblywithin the liver or left kidney IMPRESSION: No acute pulmonary disease. Code 39793 -------- FINAL REPORT -------- Dictated By: James Chiang Dictated Date: 02/01/2025 07:37 ET Assigned Physician: James Chiang Reviewed and Electronically Signed By: James Chiang Signed Date: 02/01/2025 07:38 ET Workstation ID: [id number] Transcribed By: Self Edit Transcribed Date: 02/01/2025 07:37 ET us Bipin Morris MD IMG XR PROCEDURES Final R esult * ECG 12 lead (01/27/2025 2:59 PM EDT) Ventricular Rate ECG 75 BPM GEMUSE Atrial Rate 75 BPM GEMUSE P-R Interval 152 ms GEMUSE QRS Duration 78 ms GEMUSE Q-T Interval 394 ms GEMUSE QTc 439 ms GEMUSE P Wave [place] 71 degrees GEMUSE R [place] 60 degrees GEMUSE T [place] 59 degrees GEMUSE ECG Interpretation Normal sinus rhythm Normal ECG No previous ECGs available Confirmed by MD Arturo, Bipin ([id number]) on 01/28/2025 12:25:34 PM GEMUSE 01/27/2025 2:59 PM EDT 01/28/2025 12:25 PM EDT us Bipin Morris MD ECG ORDERABLES Final Res ult GEMUSE * XR Barium Swallow with Video and Speech (01/13/2025 10:11 AM EDT) Anatomical Region Laterality Modality Head and Neck Radiographic Xochitl ging 01/13/2025 12:0 3 PM EDT Impressions 01/13/2025 12:07 PM EDT Normal swallowing function. Please refer to the dedicated speech pathologist report for further details as clinically indicated. CT Teleradiology -------- FINAL REPORT -------- Dictated By: Laurie Spann Dictated Date: 01/13/2025 12:03 ET Assigned Physician: James Chiang Reviewed and Electronically Signed By: James Chiang Signed Date: 01/13/2025 12:07 ET Workstation ID: [id number] Transcribed By: Self Edit Transcribed Date: 01/13/2025 12:04 ET Resident/PA/SUPERVISOR CAP AND HAT PRODUCTION: Laurie Spann Narrative 01/13/2025 12:07 PM EDT CLINICAL HISTORY: dysphagia. STUDY: Modified barium swallow study COMPARISON: No prior modified barium swallow. HISTORY: Patient is a 54-year-old female with history of dysphagia. TECHNIQUE: Multiple sequential fluoroscopic images of the lateral neck were obtained for a swallowing function study. Barium enhanced consistencies of pudding, honey, nectar, thin liquid, semi- solid, and a 13 mm barium tablet were utilized for evaluation. Examination was performed with the speech therapist present. FINDINGS: There was no evidence for penetration or aspiration of the various consistencies. 13mm barium tablet was swallowed without difficulty with prompt passage of pill past the hypopharynx. DAP: 0.07 Gycm^2 Procedure Note James Chiang MD - 01/13/2025 CLINICAL HISTORY: dysphagia. STUDY: Modified barium swallow study COMPARISON: No prior modified barium swallow. HISTORY: Patient is a 54-year-old female with history of dysphagia. TECHNIQUE: Multiple sequential fluoroscopic images of the lateral neckwere obtained for a swallowing function study. Barium enhancedconsistencies of pudding, honey, nectar, thin liquid, semi-solid, and a 13mm barium tablet were utilized for evaluation. Examination was performedwith the speech therapist present. FINDINGS: There was no evidence for penetration or aspiration of the variousconsistencies. 13mm barium tablet was swallowed without difficulty withprompt passage of pill past the hypopharynx. DAP: 0.07 Gycm^2 IMPRESSION: Normal swallowing function. Please refer to the dedicated speech pathologist report for furtherdetails as clinically indicated. CT Teleradiology -------- FINAL REPORT -------- Dictated By: Laurie Spann Dictated Date: 01/13/2025 12:03 ET Assigned Physician: James Chiang Reviewed and Electronically Signed By: James Chiang Signed Date: 01/13/2025 12:07 ET Workstation ID: [id number] Transcribed By: Self Edit Transcribed Date: 01/13/2025 12:04 ET Resident/PA/SUPERVISOR CAP [employer] HAT PRODUCTION: Laurie Spann Wesly Ortiz MD IMG FLUOROSCOPY PROCEDUR ES Final Result * SENIOR DEVOPS ENGINEER videofluoroscopic swallow study with barium (01/13/2025 9:45 AM EDT) Sonia Vitale SLP - 01/13/2025 9:45 AM EDT ANGELO Martinez 01/13/2025 11:59 AM Speech/Language Pathology OUTPATIENT MODIFIED BARIUM SWALLOW STUDY/ VIDEOFLUOROSCOPIC EVALUATION OF THE SWALLOW NAME: Nickie Fowler DATE OF : 1970 DATE: 01/13/2025 RECOMMENDATIONS: Recommendations/Treat Recommendations Comment: Voice therapy Solid Consistency: IDDSI Level 7 Regular Liquid Consistency: Thin liquids Liquid Administration Via: Cup, Straw Recommended Medication Administration: One pill at a time TREATMENT RECOMMENDATIONS: Evaluation only. Patient would benefit from Voice therapy with Outpatient SENIOR DEVOPS ENGINEER. Summary and Impressions: Nickie Fowler is a 54 y.o. who presents with Oropharyngeal Swallow Within Normal Limits on MBS. No pharyngeal residue and no tracheal aspiration assessed. Slow esophageal clearance noted below cricopharyngeus. Results reviewed with patient. Pt would benefit from Voice therapy. TIME IN: 09:00 TIME OUT: 0945 MINUTES: 45 [employer] REQUIRED: No GENERAL INFORMATION: Ordering Physician: Dr Wesly Ortiz Radiologist: Laurie ROJAS Date of Evaluation: 01/13/25 Type of Study: Initial MBS Reason for Study: Patient c/o inconsistent difficulty swallowing on food, liquids and even on own saliva. Also reports chronic laryngitis. Fiberoptic Laryngoscopy showed mild anterior glottic bowing. Diet Prior to this Study: Regular/thin Dysphagia Diagnosis: Within Functional Limits SUBJECTIVE: Pleasant, ambulatory and demonstrate adequate Cognition. Dysphagia, pharyngeal phase [R13.13] SENIOR DEVOPS ENGINEER VIDEOFLUOROSCOPIC SWALLOW STUDY WITH BARIUM [[id number]] XR BARIUM SWALLOW WITH VIDEO AND SPEECH [[id number]] ALLERGIES: Allergies[1] OBJECTIVE Respiratory status: Room air DYSPHAGIA HISTORY/PREVIOUS MBSs Inconsistent dysphagia symptoms over a year DYSPHAGIA SYMPTOMS REPORTED: Coughing and Food gets stuck MENTAL STATUS: Alert , Responsive, and Cooperative Oral/Motor: WNL Oral motor skills for speech and swallowing tasks Fluoroscopy View: Lateral Position during Eval: Standing CONSISTENCIES TRIALED FOOD: IDDSI Level 7 Regular and IDDSI Level 4 Puree LIQUID: IDDSI Level 3 Moderately Thick, IDDSI Level 2 Mildly Thick, and IDDSI Level 0 Thin BARIUM TABLET: whole with water Oral Phase: Oral Phase: Within Functional Limits (WFL oral transit, mastication and clearance.) Pharyngeal Phase: Pharyngeal Phase: Within Functional Limits (Adequate hyolaryngeal movement and epiglottic inversion. Adequate clearance of pharynx. No laryngeal penetration, no tracheal aspiration.) Pharyngeal Phase: Within Functional Limits (Adequate hyolaryngeal movement and epiglottic inversion. Adequate clearance of pharynx. No laryngeal penetration, no tracheal aspiration.) Cricopharyngeal/Esophageal Phase: Cricopharyngeal Phase: Within Functional Limits (Complete duration and distention of the pharyngoesophageal segment with no obstruction of flow through the PES.) Cricopharyngeal Comment: However slow clearance noted below Cricopharyngeus 8- Point Penetration Aspiration Scale (PAS) Consistency- (IDDSI level) Score Comments Moderate thick liquids (3) 1- Material does not enter airway. Mildly thick liquids (2) 1- Material does not enter airway. Thin liquids (0) 1- Material does not enter airway. Puree (4) 1- Material does not enter airway. Regular solids (7) 1- Material does not enter airway. Barium tablet 1- Material does not enter airway. Other: SEYMOUR Jackson, Janneth Temple, Rosalio PATEL, RAJNI Hernandez, & RAJNI Hogan. A Penetration-Aspiration Scale. Dysphagia 11:93-98, 1995. EDUCATION Education: Education provided: Reviewed MBS video Swallow strategies Recommended referral Applied Knowledge, Verbal Understanding, and Demonstrated Skills Sonia Contreras, SENIOR DEVOPS ENGINEER 01/13/2025 Please note that swallowing is a dynamic process and the skills reflected during this brief assessment may not necessarily represent the patient's swallowing function during an entire meal. Ongoing clinical judgment is strongly advised. [1] Allergies Allergen Reactions Iodinated Contrast Media Rash Oxycodone Hcl Nausea And Vomiting us Wesly Ortiz MD SENIOR DEVOPS ENGINEER ORDERABLES Final Re sult * BD Bone Density DXA Axial Skeleton (06/02/2024 2:46 PM EST) Anatomical Region Laterality Modality Wrist, Hip, L-spine Bone Densito metry 06/02/2024 4:34 PM EST Impressions 06/02/2024 4:35 PM EST Osteopenia. -------- FINAL REPORT -------- Dictated By: Dafne Gutierrez Dictated Date: 06/02/2024 16:34 ET Assigned Physician: Dafne Gutierrez Reviewed and Electronically Signed By: Dafne Gutierrez Signed Date: 06/02/2024 16:35 ET Workstation ID: [id number] Transcribed By: Self Edit Transcribed Date: 06/02/2024 16:34 ET Narrative 06/02/2024 4:35 PM EST History: Low estrogen state due to menopause. Parent hip fracture. Comparison: No comparison imaging at this institution. Findings: Bone densitometry is performed utilizing dual energy x-ray absorptiometry (DXA) in the [employer] unit. The lumbar spine and proximal femora are evaluated in the AP projection. The FRAX questionaire was completed. The results indicate low bone mass (osteopenia), with a left femoral neck T- score of -2.4. The Z score is -1.4, indicating low bone mineral density for age. The detailed DEXA report will be mailed to the referring physician's office. DualFemur FRAX: 10-year Probability of Fracture: Major Osteoporotic 14.5 percent Hip 0.9 percent. Procedure Note Dafne Gutierrez MD - 06/02/2024 History: Low estrogen state due to menopause. Parent hip fracture. Comparison: No comparison imaging at this institution. Findings: Bone densitometry is performed utilizing dual energy x-ray absorptiometry(DXA) in the [employer] unit. The lumbar spine and proximal femora areevaluated in the AP projection. The FRAX questionaire was completed. The results indicate low bone mass (osteopenia), with a left femoral neckT-score of -2.4. The Z score is -1.4, indicating low bone mineral densityfor age. The detailed DEXA report will be mailed to the referringphysician's office. DualFemur FRAX: 10-year Probability of Fracture: Major Osteoporotic 14.5percent Hip 0.9 percent. IMPRESSION: Osteopenia. -------- FINAL REPORT -------- Dictated By: Dafne Gutierrez Dictated Date: 06/02/2024 16:34 ET Assigned Physician: Dafne Gutierrez Reviewed and Electronically Signed By: Dafne Gutierrez Signed Date: 06/02/2024 16:35 ET Workstation ID: [id number] Transcribed By: Self Edit Transcribed Date: 06/02/2024 16:34 ET Emil Trotter MD [facility] DXA PROCEDURES Final Result * (ABNORMAL) Lipid panel with reflex to direct LDL (05/24/2024 4:53 PM EST) Cholesterol 266(H) 0 - 200 mg/dL LAB CHEMISTRY METHOD 05/24/2024 7:50 PM EST [facility] Triglycerides 311(H) 0 - 150 mg/dL LAB CHEMISTRY METHOD 05/24/2024 7:50 PM EST [facility] HDL 61 >=40 mg/dL LAB CHEMISTRY METHOD 05/24/2024 7:50 PM EST [facility] LDL Calculated 143(H) 0 - 100 mg/dL LAB CHEMISTRY METHOD 05/24/2024 7:50 PM EST [facility] VLDL Cholesterol De 62.2 mg/dL LAB CHEMISTRY METHOD 05/24/2024 7:50 PM EST [facility] Non HDL Chol. (LDL+VLDL) 205(H) <145 mg/dL LAB CHEMISTRY METHOD 05/24/2024 7:50 PM EST [facility] Chol/HDL Ratio 4.4 0.0 - 4.4 LAB CHEMISTRY METHOD 05/24/2024 7:50 PM EST [facility] Blood Venous blood specimen / Unknown Venipuncture / Unknown 05/24/2024 4:53 PM EST 05/24/2024 4:53 PM EST us Diandra Watkins NP LAB BLOOD ORDERABLES Final Resul t [facility] [address] [place] [address], [place] [phone] * MG Mammo Digital Screening w Bogdan bilat (02/14/2024 11:23 AM EDT) Anatomical Region Laterality Modality Breast Bilateral Mammography 02/16/2024 2:38 PM EST Impressions 02/16/2024 2:39 PM EST No mammographic evidence of malignancy. BI-RADS CATEGORY: 1 - NEGATIVE RECOMMENDATION: Screening bilateral mammogram is recommended in 1 year. -------- FINAL REPORT -------- Dictated By: Cristy Zamudio Dictated Date: 02/16/2024 14:38 ET Assigned Physician: Cristy Zamudio Reviewed and Electronically Signed By: Cristy Zamudio Signed Date: 02/16/2024 14:39 ET Workstation ID: [id number] Transcribed By: Self Edit Transcribed Date: 02/16/2024 14:38 ET Narrative 02/16/2024 2:39 PM EST CLINICAL: 53 years old, Female, routine annual exam. COMPARISON: 01/11/2023, 11/25/2020, and 01/25/2008 TECHNIQUE: Bilateral MLO and CC views were obtained digitally with 3-D mammogram (digital breast tomosynthesis). Computer-aided detection was utilized in evaluation of this exam (CAD). FINDINGS: No new suspicious mass, architectural distortion, or suspicious calcifications. BREAST DENSITY: B - There are scattered areas of fibroglandular density. Procedure Note Cristy Zamudio MD - 02/16/2024 CLINICAL: 53 years old, Female, routine annual exam. COMPARISON: 01/11/2023, 11/25/2020, and 01/25/2008 TECHNIQUE: Bilateral MLO and CC views were obtained digitally with 3-Dmammogram (digital breast tomosynthesis). Computer-aided detection wasutilized in evaluation of this exam (CAD). FINDINGS: No new suspicious mass, architectural distortion, or suspiciouscalcifications. BREAST DENSITY: B - There are scattered areas of fibroglandular density. IMPRESSION: No mammographic evidence of malignancy. BI-RADS CATEGORY: 1 - NEGATIVE RECOMMENDATION: Screening bilateral mammogram is recommended in 1 year. -------- FINAL REPORT -------- Dictated By: Cristy Zamudio Dictated Date: 02/16/2024 14:38 ET Assigned Physician: Cristy Zamudio Reviewed and Electronically Signed By: Cristy Zamudio Signed Date: 02/16/2024 14:39 ET Workstation ID: [id number] Transcribed By: Self Edit Transcribed Date: 02/16/2024 14:38 ET Self Referral [facility] IMG BI PROCEDURES Final Resu lt * Cervical Cancer Screening: HPV (06/26/2021) Pathologist [facility] Cervical Cancer Screening: HPV abstracted ,negative [facility] Provider HEALTH MAINTENANCE Final Result * HIV Screening (12/19/2011) [facility] HIV Screening abstracted [facility] Provider HEALTH MAINTENANCE Final Result * Hepatitis C Screening (12/19/2011) [facility] Hepatitis C Screening negative negative - positive [facility] Provider HEALTH MAINTENANCE Final Result from Last 3 Months or Most Recently Relevant to Health Maintenance Insurance [facility] Care Teams Winery Worker Relationship Specialty Start Date End Date Aaron Hermosillo MD [address] [place] [id number] PCP - General Internal Medicine 12/14/24
--- OUTSIDE RECORDS SUMMARY | 2025-03-23 23:26 | XMS_ITS | Clinical Summary ---
Author Organization [facility] Address [address] [address] Phone Care Team Providers Care Shaft Mechanic Name Role Phone Aaron Hermosillo MD Primary Care Provider + Allergies Active Allergy Reactions Criticality Noted Date Comments Oxycodone Rash Low 06/09/2023 Medications levothyroxine (SYNTHROID, LEVOTHROID) 50 MCG tablet Take 1 tablet by mouth every morning. 05/18/2023 Active alendronate (FOSAMAX) 70 MG tablet Take 1 tablet by mouth once a week. 05/06/2023 Active gabapentin (NEURONTIN) 300 MG capsule Take 300 mg by mouth nightly at bedtime. 05/21/2023 Active calcium carbonate-vitam in D3 1,250 mg (500 mg elemental)-400 units per tablet Take 1 tablet by mouth daily. Active Active Problems Problem Noted Date Diagnosed Date Aftercare following surgery of the skin or subcutaneous tissue 07/09/2023 Changing skin lesion 06/27/2023 Family History Medical History Relation Comments Diabetes Mother Heart block Mother Hypertension Mother Stroke Mother Relation Status Comments Father Mother Alive Social History Tobacco Use Types Packs/Day Years Used Date Smoking Tobacco: Never Tobacco Cessation:Counseling Given: Not Answered Alcohol Use Standard Drinks/Week Comments Yes 0 (1 standard drink = 0.6 oz pur e alcohol) socially Education Answer Date Recorded Are you interested in more education? Not on sarai e 05/29/2023 Are you concerned about learning? Not on file 05/29/2023 No 05/29/2023 No 05/29/2023 Digital Access Answer Date Recorded No 05/29/2023 No 05/29/2023 Reliable internet access at home? Not on file 05/29/2023 Device with a working camera? Not on file Comments Unknown Sex and Gender Information Value Date Recorded Sex Assigned at Not on file Legal Sex Female 6:13 PM EST Gender Identity Not on file Sexual Orientation Not on file Last Filed Vital Signs Vital Sign Reading Time Taken Comments Blood Pressure 133/73 06/09/2023 12:59 PM EST Pulse 95 06/09/2023 12:59 PM EST Temperature - - Respiratory Rate - - Oxygen Saturation - - Inhaled Oxygen Concentration - - Weight 61 kg (134 lb 6.4 oz) 06/09/2023 12:59 PM EST Height 152.4 cm (5') 06/09/2023 12:59 PM EST Body Mass Index 26.25 06/09/2023 12:59 PM EST Plan of Treatment Health Maintenance Due Date Last Done Comments LIPID PANEL 1970 TSH LEVEL 1970 DEPRESSION SCREENING 1981 HEPATITIS C SCREENING 11/16/1987 HIV ONE-TIME SCREENING (18-6 5 YEARS) 11/16/1987 PAP SMEAR 1990 SMOKING STATUS SCREENING (On ce After 26 Yrs) 11/16/1995 SCREENING FOR DIABETES 2004 MAMMOGRAM 2009 COLOGUARD 2014 COLONOSCOPY 2014 COLORECTAL CANCER SCREENING 2014 FIT TEST 2014 FOBT 2014 SIGMOIDOSCOPY 2014 VIRTUAL COLONOSCOPY 2014 PNEUMOCOCCAL VACCINES (50+ years) (1 of 1 - PCV) 11/16/2019 ZOSTER VACCINES (1 of 2) 11/16/2019 INFLUENZA VACCINE (#1) 2024 2, 01/27/2008 COVID-19 VACCINE (3 - 2024-2 6 season) 2024 05/25/2021, 04/23/2021 Adult Td,Tdap Booster 07/27/2028 07/27/2018 , 01/28/2008 RSV VACCINE (1 - 1-dose 75+ series) 2044 HEPATITIS A VACCINES Aged Out No long er eligible based on patient's age to complete this topic HIB VACCINES Aged Out No longer eligi ble based on patient's age to complete this topic MENINGOCOCCAL VACCINES (ACWY) Aged Out No longer eligible based on patient's age to complete this topic MENINGOCOCCAL VACCINES (B) Aged Out N o longer eligible based on patient's age to complete this topic Medical Devices Not on file Insurance [facility] Address: [address] [address] [facility] Address[facility] [address] [address] [facility] Address[facility] [address] [address] [facility] Address: [address] [address] [facility] Care Teams Shaft Mechanic Relationship Specialty Start Date End Date Aaron Hermosillo MD [address] [place] [phone] PCP - General Internal Medicine 05/29/23 Additional Source Comments The information contained in this document represents components of the legal health record. It is not the complete legal health record.[facility]
== END 2025-03-23 15:23 | disposition home or self-care (01) ==
LOC: HO.HSM 14:53
PROVIDERS: PCP Internal Medicine; Visit Provider Psychiatry & Neurology Neurology
DX: G31.84 Mild cognitive impairment of uncertain or unknown etiology (principal); G43.909 Migraine, unspecified, not intractable, without status migrainosus
CPT/HCPCS: 99205

== ENCOUNTER 2025-03-23 14:53 | Outpatient (REF) | payer OTHER, SELFPAY | END 2025-03-23 14:54 | disposition home or self-care (01) | LOC: HO.LAB 14:53 | PROVIDERS: PCP Internal Medicine; Visit Provider Psychiatry & Neurology Neurology | DX: G31.84 Mild cognitive impairment of uncertain or unknown etiology (principal); G43.909 Migraine, unspecified, not intractable, without status migrainosus; Z79.890 Hormone replacement therapy | CPT/HCPCS: 36415; 82233; 82234; 84393 ==